=== PATIENT | male | born 1990 | race Caucasian/White ===

== ENCOUNTER 2020-08-01 08:50 | Emergency (ER) | payer MEDICAID, SELFPAY ==
--- NOTE | 2020-08-01 09:08 | ED.SKABFB ---
HPI - Skin/Abscess/Foreign Bdy General Chief complaint: Skin/Abscess/Foreign Body Stated complaint: Insect Bite Time Seen by Provider: 08/01/20 09:15 Source: patient and RN notes reviewed Mode of arrival: ambulatory Limitations: no limitations History of Present Illness HPI narrative: 29 year old male who presents to [facility] care with complaints of 2 day duration of red swollen lesion to the dorsal aspect of his left hand states he thinks it is an insect bite. Patient states that dorsal aspect of his left hand is painful states that he has not taken any Motrin or Tylenol for his pain. Patient has 1cm diameter partially scabbed lesion to the dorsal left hand with 1cm additional surrounding redness, no purulent drainage noted or any induration of wound. Patient denies any other open lesions, denies any fevers, chills or sweats, patient denies any IV drug use. Patient states that he is from [place] visiting with relatives in the area. MD complaint: abscess/boil Onset (ago): day(s) (2) Tetanus up to date: yes Location: L hand Severity: moderate Severity scale (1-10): 4 Quality: aching Pain Consistency: constant Relieving factors: none Exacerbating factors: palpation and movement Associated symptoms: denies other symptoms Treatments prior to arrival: other (cleansing alcohol) Related Data Allergies Allergy/AdvReac Type Severity Reaction Status Date / Time No Known Allergies Allergy Verified 08/01/20 09:04 Review of Systems Review of Systems: Narrative: CONSTITUTIONAL: Denies fever, chills, or sweats. EYES: Denies visual changes, redness, or discharge. ENT: Denies rhinorrhea, congestion, sore throat, or otalgia. CARDIOVASCULAR: Denies chest pain, palpitations, or edema. RESPIRATORY: Denies cough or dyspnea. GASTROINTESTINAL: Denies abdominal pain, nausea, vomiting, or diarrhea. GENITOURINARY: Denies dysuria or hematuria. SKIN: Denies rash or itching, positive for 1cm abscess type lesion with surrounding redness and pain to dorsal left hand MUSCULOSKELETAL: Denies back pain, joint pain, or myalgia. NEUROLOGIC: Denies headache, numbness, or weakness. PSYCHIATRIC: Denies anxiety or depression. All systems reviewed & are unremarkable except as noted in HPI and below PMFSH Past Medical History Medical History (Updated 08/01/20 @ 09:30 by Angela Coronado NP) No pertinent past medical history Surgical History Surgical History (Updated 08/01/20 @ 09:26 by Angela Coronado NP) History of inguinal hernia repair Family History Family History (Updated 08/01/20 @ 09:26 by Angela Coronado NP) Grandparent Hypertension Social History Social History (Updated 08/01/20 @ 09:27 by Angela Coronado NP) Smoking status: Current every day smoker Tobacco type: cigarettes Alcohol intake: never Substance use type: marijuana Living arrangements: with family Gender identity (if verbalized by the patient): Male Comments At time of signature, agree with nursing past medical, surgical, social and family history. There is no relevant family history pertinent to the presenting complaint Exam Narrative: Exam Narrative: GENERAL: Well-appearing, well-nourished, and in no acute distress. HEAD: Normocephalic, atraumatic. EYES: PERRLA and EOMI. ENT: Nares clear, no rhinorrhea or epistaxis. Mucous membranes moist. TM's normal with good light reflex, throat pink with no redness or tonsil enlargement, edentulous NECK: Supple.no lymphadenopathy CHEST: Clear to auscultation. No respiratory distress.SAO2 100% on room air HEART: Regular rate and rhythm. No murmur heard. Normal peripheral pulses. ABDOMEN: Soft, nontender, nondistended, normal active bowel sounds. EXTREMITIES: Normal range of motion. No edema. SKIN: Warm, dry, 1cm diameter partially scabbed lesion to the dorsal aspect of his left hand with 1cm additional surrounding redness, no purulent drainage noted from lesion or any induration of wound. Patient reports that he has cleansed
[2020-08-01 09:12] VITALS: BP 133/84; PULSE 78; RESP 18; TEMP 36.6; O2SAT 100
== END 2020-08-01 09:38 | disposition home or self-care (01) ==
PROVIDERS: Emergency Provider Registered Nurse
DX: L02.512 Cutaneous abscess of left hand (principal); F17.210 Nicotine dependence, cigarettes, uncomplicated
CPT/HCPCS: 99203; G0463